=== PATIENT | female | born 1955 | race Caucasian/White ===

== ENCOUNTER 2017-12-18 18:19 | Emergency (ER) | payer OTHER ==
--- NOTE | 2017-12-18 18:29 | ED Physician Documentation ---
PD HPI CHEST PAIN - Stated complaint Stated Complaint: CHEST PX - Chief complaint Chief Complaint: Cardiac - History obtained from History obtained from: Patient - History of Present Illness Timing - onset: Yesterday (abrupt onset while resting of left chest pain laterally and anterior. Worse with lying flat and with deep breathing.) Timing - onset during: Light activity Timing - details: Abrupt onset, Still present Quality: Sharp, Stabbing Location: Left chest Radiation: Back Improved by: No: Rest Worsened by: Exertion, Inspiration, Movement. No: Eating, Palpation Associated symptoms: Shortness of air. No: Nausea, Feeling faint / dizzy, Palpitations Similar symptoms before: Has not had sx before Recently seen: Not recently seen, Other (hip replacement 6 months ago. Long flight in October. Drove to [place] a couple weeks ago.) Review of Systems Constitutional: denies: Fever, Chills Nose: denies: Rhinorrhea / runny nose, Congestion Throat: denies: Sore throat Respiratory: denies: Cough GI: denies: Abdominal Pain, Nausea, Vomiting, Diarrhea Skin: denies: Rash, Lesions PD PAST MEDICAL HISTORY - Past Medical History Past Medical History: Yes Cardiovascular: None Respiratory: None Neuro: None Endocrine/Autoimmune: None GI: Ulcerative colitis - Past Surgical History Past Surgical History: Yes General: Colonoscopy Ortho: Hip replacement - Present Medications Home Medications: Ambulatory Orders Medication Instructions Recorded Confirmed Mesalamine [Lialda] 2.4 mg PO BID 12/18/17 Ondansetron Odt [Zofran] 4 mg TL Q6H PRN #20 tablet 12/18/17 Rivaroxaban [Xarelto] 15 mg PO BID #42 tablet 12/18/17 Tramadol HCl 50 mg PO Q6H PRN #20 tablet 12/18/17 - Allergies Allergies/Adverse Reactions: Allergies Allergy/AdvReac Type Severity Reaction Status Date / Time No Known Drug Allergies Allergy Verified 12/18/17 18:29 - Social History Does the pt smoke?: No Smoking Status: Never smoker Does the pt drink ETOH?: Yes Does the pt have substance abuse?: No - POLST Patient has POLST: No PD ED PE NORMAL - Vitals Vital signs reviewed: Yes - General General: Alert and oriented X 3, Well developed/nourished, Other (appears in pain, worse with deep breathing. ) - HEENT HEENT: Pharynx benign - Neck Neck: Supple, no meningeal sign, No adenopathy - Cardiac Cardiac: RRR, No murmur - Respiratory Respiratory: Clear bilaterally - Abdomen Abdomen: Soft, Non tender - Back Back: No CVA TTP - Derm Derm: Normal color, Warm and dry - Extremities Extremities: No tenderness to palpate, Normal ROM s pain, No edema, No calf tenderness / cord - Neuro Neuro: Alert and oriented X 3, No motor deficit, Normal speech Results - Vitals Vitals: Vital Signs - 24 hr 12/18/17 12/18/17 12/18/17 18:24 19:55 20:57 Temperature 36.8 C Heart Rate 90 74 58 L Respiratory 18 16 11 L Rate Blood Pressure 135/73 H 102/74 98/67 O2 Saturation 98 93 91 L 12/18/17 12/18/17 21:52 22:30 Temperature 36.5 C Heart Rate 63 71 Respiratory 11 L 18 Rate Blood Pressure 97/62 101/64 O2 Saturation 98 96 Oxygen O2 Source Room air - Labs Labs: Laboratory Tests 12/18/17 12/18/17 12/18/17 18:30 18:30 18:30 WBC 7.6 RBC 4.39 Hgb 13.0 Hct 40.2 MCV 91.7 MCH 29.7 MCHC 32.4 RDW 15.1 H Plt Count 278 MPV 7.1 L Neut # 4.8 Lymph # 2.2 Spalding # 0.4 Eos # 0.2 Baso # 0.0 Absolute Nucleated RBC 0.00 Nucleated RBC % 0.0 D-Dimer Sodium 138 Potassium 3.6 Chloride 103 Carbon Dioxide 26 Anion Gap 9.0 BUN 18 Creatinine 0.7 Estimated GFR (MDRD) 85 L Glucose 110 H Calcium 9.7 Total Bilirubin 1.1 H AST 22 ALT 23 Alkaline Phosphatase 77 Troponin I < 0.04 B-Natriuretic Peptide Total Protein 8.1 Albumin 5.1 Globulin 3.0 Albumin/Globulin Ratio 1.7 Lipase 18 L 12/18/17 12/18/17 18:30 18:30 WBC RBC Hgb Hct MCV MCH MCHC RDW Plt Count MPV Neut # Lymph # [place]alding # Eos # Baso # Absolute Nucleated RBC Nucleated RBC % D-Dimer 885.2 H Sodium Potassium Chloride Carbon Dioxide Anion Gap BUN Creatinine Estimated GFR (MDRD) Glucose Calcium Total Bilirubin AST ALT Alkaline Phosphatase Troponin I B-Natriuretic Peptide 17 Total Protein Albumin Globulin Albumin/Globulin Ratio Lipase - Rads (name of study) chest xray Radiology: Prelim report reviewed (no acute process) chest angio Radiology: Prelim report reviewed, Discussed with rads (segmental PE on the right and subsegmental on left in area of her pain (he had to look at it again after I told him she hurt on the left).) PD MEDICAL DECISION MAKING - ED course Complexity details: reviewed results (months out from hip surgery, but did have long plane flight in October and then drive to [place] or so a couple weeks ago. Presume developed from those trips more. Will likely need hypercoag workup as her sister has had PEs/DVT as well and has a "blood problem". Would be most helpful to find out her sisters blood dyscraisa and test for that in particular. ), re-evaluated patient (she is stable without signs of right heart strain. Can treat outpatient for the PE. ), considered differential, d/w patient Departure - Departure Disposition: 01 Home, Self Care Clinical Impression: Pleuritic chest pain Pulmonary embolism Qualifiers: Pulmonary embolism type: other Chronicity: acute Acute cor pulmonale presence: without acute cor pulmonale Qualified Code(s): I26.99 - Other pulmonary embolism without acute cor pulmonale Condition: Stable Record reviewed to determine appropriate education?: Yes Instructions: Embolism Pulmonary Dc, ED Chest Pain Pleurisy Follow-Up: SAI VELA MD [Primary Care Provider] - Prescriptions: Ondansetron Odt [Zofran] 4 mg TL Q6H PRN #20 tablet PRN Reason: Nausea / Vomiting Rivaroxaban [Xarelto] 15 mg PO BID #42 tablet Tramadol HCl 50 mg PO Q6H PRN #20 tablet PRN Reason: Pain Comments: Drink lots of fluids. Stay well-hydrated. You have couple of small blood clots seen on the CT scan. One is in the area we are hurting with some inflammation in the lung. The others on the right side. We will have you on a anticoagulant "blood thinner" called Xarelto twice daily for 3 weeks and then it will change to once daily. Call your primary care office tomorrow for an appointment. For the pain you can use Tylenol or tramadol as needed. Ondansetron if needed for nausea. Return if worsening symptoms or trouble breathing or other concerns. Discharge Date/Time: 12/18/17 22:33
[2017-12-18] MEDS ORDERED: ONDANSETRON 4 MG/2 ML VIAL IVP STA ×2 (18:42→20:57)
[2017-12-18] MEDS ORDERED: KETOROLAC 60 MG/2 ML VIAL IVP STA (18:42)
[2017-12-18] MEDS ORDERED: HYDROmorphone 1 MG/ML CARPUJECT IVP STA ×2 (18:42→19:33)
[2017-12-18 18:46] LABS: BASOPHILS % (AUTO) 0.6 %; EOSINOPHILS # (AUTO) 0.2 10^3/uL (0.0-0.7); EOSINOPHILS % (AUTO) 2.6 %; LYMPHOCYTES # (AUTO) 2.2 10^3/uL (1.5-3.5); LYMPHOCYTES % (AUTO) 28.6 %; MEAN CORPUSCULAR HEMOGLOBIN 29.7 pg (27.0-31.0); MEAN CORPUSCULAR HGB CONC 32.4 g/dL (32.0-36.0); MEAN CORPUSCULAR VOLUME 91.7 fL (81.0-99.0); MEAN PLATELET VOLUME 7.1 fL (7.9-10.8); MONOCYTES # (AUTO) 0.4 10^3/uL (0.0-1.0); MONOCYTES % (AUTO) 5.9 %; NEUTROPHILS # (AUTO) 4.8 10^3/uL (1.5-6.6); NEUTROPHILS % (AUTO) 62.3 %; PLT - PLATELET COUNT 278 10^3/uL (130-450); RED BLOOD COUNT 4.39 10^6/uL (4.20-5.40); RED CELL DISTRIBUTION WIDTH 15.1 % (12.0-15.0); WHITE BLOOD COUNT 7.6 x10^3/uL (4.8-10.8)
--- NOTE | 2017-12-18 18:56 | XRAY Preliminary Report ---
Exam: XR CHEST 2 VIEW X-RAY IMPRESSION: Normal 2-view chest radiography. [facility] SITE ID: [id number]
[2017-12-18 19:05] LABS: ALBUMIN 5.1 g/dL (3.2-5.5); ALBUMIN/GLOBULIN RATIO 1.7 (1.0-2.2); BILIRUBIN,TOTAL 1.1 mg/dL (0.2-1.0); CALCIUM 9.7 mg/dL (8.5-10.3); CREATININE 0.7 mg/dL (0.4-1.0); TOTAL PROTEIN 8.1 g/dL (6.7-8.2)
--- NOTE | 2017-12-18 19:06 | XRAY Report ---
EXAM: CHEST RADIOGRAPHY EXAM DATE: 12/18/2017 06:48 PM. CLINICAL HISTORY: Chest pain. COMPARISON: None. TECHNIQUE: 2 views. FINDINGS: Lungs/Pleura: No focal opacities evident. No pleural effusion. No pneumothorax. Normal volumes. Mediastinum: Heart and mediastinal contours are unremarkable. Other: Cholecystectomy. IMPRESSION: Normal 2-view chest radiography. [facility] Referring Provider Line: [phone] SITE ID: [id number]
[2017-12-18] MEDS ORDERED: ACETAMINOPHEN 1,000 MG/100 ML 100 ML IV STA (19:33)
[2017-12-18] MEDS ORDERED: IOPAMIDOL-300 100 ML VIAL ONE (19:53)
[2017-12-18] MEDS ORDERED: IOPAMIDOL-300 100 ML VIAL IVP ONE ×2 (20:30)
--- NOTE | 2017-12-18 20:56 | CT Preliminary Report ---
Exam: CT CHEST ANGIO (PE) IMPRESSION: Acute nonocclusive subsegmental pulmonary embolism in the posterior basal right lower lob e. Tiny peripheral pulmonary embolism in the anterolateral basilar left lower lobe. [facility] The above findings were discussed with Dr. Becerril by Dr. Dawson Young at 20:55 hrs on 12/18/17. SITE ID: [id number]
[2017-12-18] MEDS ORDERED: SODIUM CHLORIDE 0.9% 1,000 ML IV ONE (20:57)
--- NOTE | 2017-12-18 20:57 | CT Report ---
EXAM: CT ANGIOGRAM CHEST EXAM DATE: 12/18/2017 08:28 PM. CLINICAL HISTORY: Left chest pain, hurts to breathe. Hip replacement 2 months ago. COMPARISON: Radiograph today. TECHNIQUE: Routine helical imaging was performed through the chest in the pulmonary arterial phase. I V Contrast: 80 cc Isovue 300. Reconstructions: Coronal 3-D MIP reconstructions.Sagittal and coronal. In accordance with CT protocol optimization, one or more of the following dose reduction techniques w ere utilized for this exam: automated exposure control, adjustment of mA and/or KV based on patient s ize, or use of iterative reconstructive technique. FINDINGS: Pulmonary Arteries: Diagnostic quality: Adequate through the segmental arteries. Nonocclusive acute subsegmental pulmonar y embolism in the posterior basal right lower lobe. Tiny far peripheral subsegmental embolism in the anterolateral basilar left lower lobe (-). No other emboli are identified. RV/LV is within normal limits. There is no interventricular septal bowing. There is no significant re flux of contrast material in the IVC. Lungs/Pleura: Minimal wispy atelectasis at the lateral left lung base greater than posterior right jian ng base. Otherwise clear. No confluent consolidation, nodule, generalized interstitial abnormality, d izziness, pneumothorax, or pleural effusion. Central airways normal. Mediastinum: Heart size normal. No lymphadenopathy. Lower thyroid gland and esophagus unremarkable. Thoracic Aorta: Unremarkable. Upper Abdomen: Unremarkable. Other: The visualized chest wall is unremarkable. Bones are unremarkable. IMPRESSION: Acute nonocclusive subsegmental pulmonary embolism in the posterior basal right lower lob e. Tiny peripheral pulmonary embolism in the anterolateral basilar left lower lobe. [facility] The above findings were discussed with Dr. Becerril by Dr. Dawson Young at 20:55 hrs on 12/18/17. Referring Provider Line: [phone] SITE ID: [id number]
[2017-12-18] MEDS ORDERED: RIVAROXABAN 15 MG TABLET PO STA (21:19)
[2017-12-18] MEDS ORDERED: ONDANSETRON ODT 4 MG Prepack 2 TL PRN (21:20)
[2017-12-18] MEDS ORDERED: RIVAROXABAN 10 MG TABLET PO ONE (21:40)
[2017-12-18 23:46] VITALS: BP 101/64
== END 2017-12-18 22:33 | disposition home or self-care (01) ==
LOC: ED 18:19
DX: I26.99 Other pulmonary embolism without acute cor pulmonale (principal); R07.81 Pleurodynia; Z79.01 Long term (current) use of anticoagulants
CPT/HCPCS: 36415; 71046; 71275; 80053; 83690; 83880; 84484; 85025; 85379; 93005; 96365; 96375; 96376; 99284; A9270; J0131; J1170; Q9967

== ENCOUNTER 2018-06-01 09:44 | Outpatient (CLI) | payer OTHER | END 2018-06-01 09:45 | disposition home or self-care (01) | LOC: LAB 09:44 | PROVIDERS: ATTEND Internal Medicine | DX: I26.99 Other pulmonary embolism without acute cor pulmonale (principal) | CPT/HCPCS: 36415; 85379 ==